=== PATIENT | male | born 1965 | race Caucasian/White ===

== ENCOUNTER 2018-12-24 10:06 | Outpatient (CLI) | payer BC ==
--- NOTE | 2018-12-24 10:55 | RAD ---
Exam: Left knee 4 views: HISTORY: Left knee pain COMPARISON: None FINDINGS: No evidence for fracture, dislocation, or other significant acute osseous abnormality. IMPRESSION: No significant acute process.
== END 2018-12-24 10:07 | disposition home or self-care (01) ==
LOC: RAD 10:06
PROVIDERS: ATTEND Nurse Practitioner Family
DX: M25.562 Pain in left knee (principal)
CPT/HCPCS: 80307; 80326; 80331; 80334; 80337; 80341; 80344; 80346; 80348; 80353; 80354; 80355; 80357; 80358; 80359; 80360; 80361; 80364; 80365; 80366; 80367; 80368; 80370; 80371; 80372; 80377

== ENCOUNTER 2019-05-20 13:32 | Outpatient (CLI) | payer BC ==
--- NOTE | 2019-05-20 15:13 | RAD ---
SI JOINTS: 05/20/19 Three views. HISTORY: Sacroiliitis. SI joints are open and appear symmetric. Mild nonspecific sclerosis seen along the iliac side of both SI joints which appears degenerative. No focal lytic or blastic process identified involving the vis ualized sacrum or either ilium. 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 POS: OFF
== END 2019-05-20 13:33 | disposition home or self-care (01) ==
LOC: BICRAD 13:32
PROVIDERS: ATTEND Internal Medicine Rheumatology
DX: M46.1 Sacroiliitis, not elsewhere classified (principal); M53.3 Sacrococcygeal disorders, not elsewhere classified
CPT/HCPCS: 72202

== ENCOUNTER 2020-01-05 08:28 | Outpatient (CLI) | payer BC ==
[2020-01-05] MEDS ORDERED: Lidocaine 1% PF 10 ML AMP ONE (09:30)
[2020-01-05] MEDS ORDERED: Iopamidol 300 61% 100 ML VIAL FS ONE (09:30)
[2020-01-05] MEDS ORDERED: EPINEPHrine 1 MG/ML AMP ONE (09:30)
--- NOTE | 2020-01-05 10:29 | RAD ---
Exam: Left shoulder arthrogram HISTORY: Evaluate for rotator cuff tear. 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 No fracture or dislocation. Successful left shoulder arthrogram. A total of 13 cc of the contrast administration was administered into the joint space. No immediate or postprocedure complications TECHNIQUE: Consent obtained to perform a left shoulder arthrogram. Left shoulder was prepped and drap ed in a sterile fashion. 1% lidocaine, buffered with sodium bicarbonate was used for local anesthesia. Under fluoroscopic guidance, 22-gauge spinal needle was advanced into the left glenohumer al joint space. Contrast was administered. A small blush of contrast that appears to be external to the joint space. Therefore, the needle was repositioned. Additional contrast was administered which o pacifies the joint space. A total of 13 cc of contrast was administered. Patient tolerated the procedure well. No immediate or postprocedure complications IMPRESSION: Successful left shoulder arthrogram.
--- NOTE | 2020-01-05 11:57 | CT ---
LEFT SHOULDER CT SCAN POST ARTHROGRAM CONTRAST: HISTORY: Tear of left rotator cuff. TECHNIQUE: Multiplanar imaging of the left shoulder is performed following intraarticular iodinated contrast inj ection. FINDINGS: There is 1 very thin focus of contrast extension into the conjoined tendon region undersurface, evide nce for a low-grade partial-thickness undersurface and minimal delaminating tear, but no evidence for a complete full-thickness tear of the rotator cuff. No contrast extension into the AC joint. There are AC joint arthrosis changes with some undersurface spurring of the distal clavicle. Rotator cuff muscles appear to be within normal limits of attenuation and volume. Visualized labrum appears unre markable. Biceps tendon appears unremarkable. IMPRESSION: Evidence for a very small linear partial-thickness, undersurface, and very minimally delaminating tea r of the conjoined tendon region, but no evidence for complete full-thickness or retracted tear. POS: RRE
== END 2020-01-05 08:29 | disposition home or self-care (01) ==
LOC: RAD 08:28
PROVIDERS: ATTEND Orthopaedic Surgery
DX: M75.102 Unspecified rotator cuff tear or rupture of left shoulder, not specified as traumatic (principal)
CPT/HCPCS: 23350; J0171; J2001; Q9967

== ENCOUNTER 2021-01-20 07:10 | Outpatient (CLI) | payer MEDICARE, BC ==
[2021-01-18 10:24] VITALS: BMI 31.3
[2021-01-20 07:57] VITALS: BP 107/76; TEMP 97.4
== END 2021-01-20 10:00 | disposition home or self-care (01) ==
LOC: RAD 07:10
PROVIDERS: ATTEND Nurse Practitioner Family
DX: M47.817 Spondylosis without myelopathy or radiculopathy, lumbosacral region (principal); M47.816 Spondylosis without myelopathy or radiculopathy, lumbar region; M25.78 Osteophyte, vertebrae
CPT/HCPCS: 62304; 72132

== ENCOUNTER 2021-08-04 20:43 | Observation (INO) | payer MEDICARE, BC ==
[2021-08-04 21:35] LABS: Mean Corpuscular HGB CONC 33.6 g/dL (32.0-36.0); Mean Corpuscular Hemoglobin 29.8 pg (27.0-31.0); Mean Corpuscular Volume 88.8 fL (78.0-98.0); Mean Platelet Volume 6.7 fL (7.4-10.4); Platelet Count 216 thou/uL (130-400); RBC Distribution Width 12.2 % (11.5-14.5); Red Blood Cell (RBC) Count 5.38 mill/uL (4.70-6.10); White Blood Cell (WBC) Count 7.7 thou/uL (4.8-10.8)
[2021-08-04 21:50] LABS: Band 11 % (5-11); Lymphocytes 11 % (21-51); MDiff Complete? YES; Monocytes 4 % (0-10); Neutrophil 72 % (42-75); Reactive Lymphocytes 2 % (0-10)
[2021-08-04] MEDS ORDERED: Aspirin Chewable 81 MG TAB ONE (22:36)
[2021-08-04] MEDS ORDERED: Ondansetron PF 4 MG/2 ML Vial ONE (23:08)
[2021-08-04 23:21] LABS: Albumin 3.8 g/dL (3.5-5.0)
[2021-08-04 23:23] LABS: Calcium 8.8 mg/dL (7.8-10.44); Chloride 104 mmol/L (98-107); Potassium 3.9 mmol/L (3.5-5.1); Sodium 137 mmol/L (136-145)
[2021-08-04 23:24] LABS: Globulin 2.8 g/dL (2.4-3.5); Glucose 102 mg/dL (70-105); Protein, Total 6.6 g/dL (6.0-8.3)
[2021-08-04 23:26] LABS: Anion Gap 13 mmol/L (10-20); Bilirubin, Total 0.8 mg/dL (0.2-1.2); Carbon Dioxide 24 mmol/L (22-29)
[2021-08-04 23:27] LABS: Alkaline Phosphatase 63 U/L (40-110)
[2021-08-04 23:28] LABS: BUN (Urea Nitrogen) 17 mg/dL (8.4-25.7); Calc. Creatinine Clearance 0 mL/min (70-130)
[2021-08-04 23:29] LABS: AST (SGOT) 17 U/L (5-34)
[2021-08-04 23:30] LABS: ALT (SGPT) 15 U/L (8-55)
[2021-08-05] MEDS ORDERED: methylPREDNISolone Sod Succ/PF 125 MG/2 ML VIAL ONE (00:36)
[2021-08-05] MEDS ORDERED: diphenhydrAMINE 50 MG/ML VIAL ONE (00:36)
[2021-08-05] MEDS ORDERED: Acetaminophen 325 MG TAB PO PRN (01:30)
[2021-08-05] MEDS ORDERED: Ondansetron ODT 4 MG TAB SL PRN (01:30)
[2021-08-05] MEDS ORDERED: Ondansetron PF 4 MG/2 ML Vial IVP PRN (01:30)
[2021-08-05 01:49] LABS: Troponin I Less than 0.010 ng/mL (< 0.028)
[2021-08-05 03:32] VITALS: BMI 30.6
[2021-08-05 04:29] LABS: Troponin I Less than 0.010 ng/mL (< 0.028)
[2021-08-05] MEDS ORDERED: Acetaminophen 325 MG TAB ONE (09:48)
[2021-08-05] MEDS ORDERED: Iopamidol-370 76% 500 ML 1 ML ONE (12:22)
== END 2021-08-05 11:30 | disposition home or self-care (01) ==
LOC: ERS 20:43 → ERHOLD 08-05 00:51
PROVIDERS: ADMIT Internal Medicine; ATTEND Internal Medicine
DX: R07.9 Chest pain, unspecified (principal); M06.9 Rheumatoid arthritis, unspecified; I25.10 Atherosclerotic heart disease of native coronary artery without angina pectoris; E11.9 Type 2 diabetes mellitus without complications; Z87.891 Personal history of nicotine dependence; Z79.4 Long term (current) use of insulin; Z79.82 Long term (current) use of aspirin; Z79.899 Other long term (current) drug therapy; Z95.1 Presence of aortocoronary bypass graft
CPT/HCPCS: 71045; 71275; 80053; 84484 ×3; 85025; 93005; G0378; 36415; J1200; J2405; J2930; Q9967

== ENCOUNTER 2022-10-22 10:14 | Outpatient (CLI) | payer MEDICARE, BC | END 2022-10-22 10:15 | disposition home or self-care (01) | LOC: BICCT 10:14 | PROVIDERS: ATTEND Psychiatry & Neurology Psychiatry | DX: Z12.2 Encounter for screening for malignant neoplasm of respiratory organs (principal); Z87.891 Personal history of nicotine dependence | CPT/HCPCS: 71271 ==